=== PATIENT | female | born 1965 | race African-American/Black ===

== ENCOUNTER 2020-10-02 16:50 | Emergency (ER) | payer OTHER ==
[~2020-10-02] VITALS: Ht 165.1 cm; Wt 82.1 kg
[2020-10-02 18:52] LABS: ABSOLUTE NEUTROPHILS 2.1 thou/uL (1.4-8.2); BASOPHILS 0.7 % (0.0-2.0); EOSINOPHILS 0.6 % (0.0-3.0); HEMATOCRIT 41.1 % (37.0-47.0); HEMOGLOBIN 13.6 gm/dL (12.0-15.0); LYMPHOCYTES 44.9 % (24.0-44.0); MCH 31.8 pg (26.0-34.0); MCV 96.3 fL (80.0-100.0); MONOCYTES 9.7 % (1.0-8.0); PLATELET COUNT 237 thou/uL (150-400); POLYS 44.1 % (36.0-66.0); RBC 4.27 mil/uL (4.20-5.00); RDW 14.4 % (10.5-14.5); WBC 4.7 thou/uL (4.0-11.0)
[2020-10-02 18:58] LABS: ANION GAP 8 mmol/L (7-16); BUN 14 mg/dL (7-18); CALCIUM 9.3 mg/dL (8.5-10.1); CHLORIDE 105 mmol/L (98-107); CO2 30 mmol/L (21-32); CREATININE 0.6 mg/dL (0.6-1.0); GLUCOSE 105 mg/dL (74-106); POTASSIUM 3.7 mmol/L (3.5-5.1); SODIUM 143 mmol/L (136-145)
[2020-10-02 19:01] LABS: URINE BILIRUBIN NEGATIVE (Negative); URINE BLOOD NEGATIVE (Negative); URINE CLARITY CLEAR; URINE COLOR YELLOW; URINE GLUCOSE-RANDOM* NEGATIVE (Negative); URINE KETONES NEGATIVE (Negative); URINE LEUKOCYTES-REFLEX NEGATIVE (Negative); URINE NITRITE-REFLEX NEGATIVE (Negative); URINE PROTEIN (DIPSTICK) NEGATIVE (Negative); URINE SPECIFIC GRAVITY <= 1.005 (1.005-1.035); URINE UROBILINOGEN 0.2 E.U./dl (0.2-1.0)
[2020-10-02 19:04] LABS: ALBUMIN 3.9 g/dL (3.4-5.0); SALICYLATE < 2.8 mg/dL (2.8-20.0); SGOT 13 U/L (15-37); SGPT 17 U/L (14-59); TOTAL BILIRUBIN 0.3 mg/dL (0.2-1.0); TOTAL PROTEIN 7.5 g/dL (6.4-8.2)
[2020-10-02 19:15] LABS: AMP/METHAMP Negative (Negative); BARBITURATES Negative (Negative); BENZODIAZEPINES Negative (Negative); COCAINE Negative (Negative); METHADONE Negative (Negative); OPIATES Negative (Negative); PCP Negative (Negative)
[2020-10-03 05:08] VITALS: BP 142/68
== END 2020-10-03 05:15 ==
LOC: ER 16:50
PROVIDERS: Physician Assistant
DX: R44.3 Hallucinations, unspecified (principal); E11.9 Type 2 diabetes mellitus without complications; Z20.828 Contact with and (suspected) exposure to other viral communicable diseases

== ENCOUNTER 2020-10-03 05:43 | Inpatient (IN) | payer OTHER ==
[~2020-10-03] VITALS: Ht 170.2 cm; Wt 88.5 kg
--- NOTE | 2020-10-03 06:40 | NUR ---
PT ARRIVED TO UNIT APPROX 0518. PT PRIMARY LANGUAGE CREOLE, REPORTS BEING ABLE TO UNDERSTAND ANDORRAN WITH LITTLE ABILITY TO SPEAK ANDORRAN WELL. UPON ORIENTING PT TO ROOM AND DISCUSSING ADMISSION CONSENTS, PT REFUSING TO CONTINUE DUE TO LACK OF UNDERSTANDING OF SPOKEN AND WRITTEN ANDORRAN. PT NOTED TO HAVE DIFFICULTY READING PRIMARY LANGUAGE. WEATHER TEACHER OFFERED, PT AGREEABLE TO WEATHER TEACHER BUT PT REFUSING TO SIGN ADMISSION CONSENTS AND TO BE ADMITTED TO FLOOR. CHRISTINE DELGADILLO NOTIFIED UNIT OF HOSPITALIST CONSULT, ORDER ENTERED. CHRISTINE DELGADILLO NOTIFIED, RECEIVED APPROVAL THAT PT MAY REFUSE ADMISSION PT NOT A DANGER TO SELF OR OTHERS, AOX4 WITH ORIENTATION TO ABILITIES. DAY SHIFT AWARE OF PT POSSIBILITY TO LEAVE AMA.
--- NOTE | 2020-10-03 09:30 | NUR ---
ASSUMED CARE AT 0700 THIS MORNING. PT. HAS NOT SIGNED HERSELF IN. NOTED ON INTAKE SHEET THAT SHE HAS DM. ASKED THE PT. IF SHE WAS ON INSULIN. SHE NODDED HER HEAD IN THE AFFIRMATIVE. LOOKED THROUGHOUT THE CHART AND HER BELONGINGS. THERE IS NO MEDICATION LIST HERE. CALLED HER DAUGHTER GEORGINA IN [place] TO OBTAIN A MEDICATION LIST. NO ANSWER. LEFT DETAILED MESSAGE ON HER ANSWERING SERVICE TO PLEASE RETURN MY CALL. CALLED AIRLINE ATTENDANT JIMMIE PATINO. UPDATED HIM ON THE SITUATION AT HAND HERE. HE STATED HE WOULD BE IN "PRETTY SOON". WHEN I TALKED TO THE PT. SHE STATED SHE WOULD PROBABLY "LEAVE TOMORROW".
[2020-10-03 13:28] VITALS: BP 180/80
[2020-10-03 19:41] VITALS: BP 147/84
--- NOTE | 2020-10-04 04:40 | NUR ---
RECIEVED CARE OF THIS PATIENT AT 1900. PATIENT ALERT AND ORIENTED X4. PATIENT CALM AND COOPERATIVE, TOOK MEEDS WITHOUT PROBLEMS, HAS HARD TIME UNDERSTANDING BUT IF GO SLOW AND SPEAK CLEARLY UNDERSTANDS BETTER. C/O PAIN OF A LOT OF HER BODY. HAD NOTHING ORDERED SO SHE DID NOT PAIM MED. SLEPT MOST OF NIGHT.
[2020-10-04 10:09] VITALS: BP 128/78
--- NOTE | 2020-10-04 11:36 | NUR ---
Assessment and treatment plan completed
--- NOTE | 2020-10-04 12:10 | NUR ---
1200 RESUMMED CARE FROM OVERNIGHT SHIFT THIS AM, PATIENT IN ROOM QUIET. PATIENT ASKED IF SHE COULD REST AT BREAKFAST TIME BECAUSE SHE WAS ADMITTED AT 0500 AM. I LET HER REST UNTIL 10;00 SHE ATE BREAKFAST TOOK MEDICATION WITHOUT INCIDENCE. PATIENT IS ALERT ORIENTED TO SELF AND PLACE SHE HAS VH THAT SNAKES ARE TRYING TO BIT HER. PATIENT IS CREOLE AND CANNOT UNDERSTAND GERMAN VERY WELL. HER DR CALLED AND WAS TALKING WITH PATIENT AND SHE GAVE ME THE PHONE AND THE DAUGHTER TOLD ME ABOUT THE SNAKES. JIMMIE CAME TO SEE PATIENT AND ORDERED CT OF HEAD AND AN EKG. PATIENTS ABDOMEN SOFT BOWEL SOUNDS PRESENT LUNGS CLEAR PATIENT CARRIES HER BIBLE WITH HER. PATIENT IS ON A 96 HOUR HOLD AND NEEDS A DPOA TO MAKE DECISIONS FOR PATIENT. WILL CONTINUE TO MONITOR PATIENT FOR SAFETY AND BEHAVIORS.
[2020-10-04 18:07] VITALS: BP 120/73
--- NOTE | 2020-10-05 00:58 | NUR ---
Assumed care on 10/04/20 @ 1900, Cooperated with assessment, HRRR, Lungs sound CTA, reports Stomach pain, ABD BS present. Seated in the day room with a blanket over her head. Reports comes from Natalie, reports speaks Georgian. Received a phone call from daughter and spoke for a while. Denies SI and HI, Denies AH and VS. Reading from a book and awake at this writing. Has resisted suggestions that she lay down in bed and collar turner the lights. Will continue to monitor for patient safety and comfort.
--- NOTE | 2020-10-05 07:28 | EKG ---
[address] [place] [address] ELECTROCARDIOGRAM REPORT Name: SORAYA MATSON Room #: [facility] ADM IN M.R.#: [id number] Admission: 10/03/20 Attend Phys: Tere Anna MD Discharge: Date of : 63 Report #: [id number] [facility] Test Date: 2020-10-04 Test Time: 13:05:49 Pat Name: SORAYA MATSON Department: Room: [facility] Gender: F Marine Insulator: SABAS : 1965 Requested By: Stone Stone Order Number: [id number] MD: Lj Otto Measurements Intervals Thompson Rate: 59 P: 57 WI: 178 QRS: 14 QRSD: 90 T: 30 QT: 401 QTc: 398 Interpretive Statements Sinus rhythm No significant abnormality No previous ECG available for comparison Electronically Signed On 10-05-2020 7:28:40 BACON DE RINDER by Lj Otto [email or web address] <ELECTRONICALLY SIGNED> By: Lj Otto MD, [facility] 10/05/20 0728 1305 1305 Lj Otto MD, FAC /EPI
[2020-10-05 10:48] VITALS: BP 135/89
--- NOTE | 2020-10-05 13:44 | NUR ---
Assess due to new admit to [facility] for psychosis and hallucinations. Eating 100% of meals and wt is obese. Hx DM, BG 116-151, on carb control diet order. Low nutrition risk
--- NOTE | 2020-10-05 16:25 | NUR ---
JASMYN contacted pt's daughter Nely and spoke with her. She said pt has been having hallucinations that someone was trying to kill her for approx 3-5 months. She said pt has a PCP with [facility], and takes her to the doctor every time she makes these statements. She said the doctor says they cannot find anything wrong. SW asked if they have referred her to psych yet, and she said no, but she has been wanting to get her a psych eval but they only do them via tele psych. She said she does harmful things like slap herself in the head and face. Pt does not currently have a MH dx or a dx of a neurocognitive disorder. SW team will continue to follow pt during her stay on this unit.
--- NOTE | 2020-10-05 17:57 | NUR ---
ASSUMED PT CARE AT 0700. pt was alert and oriented x4. pt was calm and co-operative with care. pt abulates with a steady gaits. Pt reported that she saw snakes on her back last night and night. Pt stated her brother does [employer] and he want pt to be part of it, but pt refused and chose God. pt have an old scar wound on her left thigh. pt denies SI/HI, pt denies pain. Pt stated the help she need was prayers. Shirt Folder prayed with pt, few minutes later pt reported that after the prayers they stopped hitting her head. pt ate 100% of her meals. pt carries and read her bible. pt takes her meds whole Will continue to monitor pt.
[2020-10-05 19:51] VITALS: BP 136/91
--- NOTE | 2020-10-06 03:05 | NUR ---
Assumed care of patient this pm shift. Patient denies hi/si. Patient is alert and oriented x3. Takes medications whole with thin liquids. Ambulates without assistance, not a falls risk. Hears and sees snakes on her skin. Is aware that no one else can see these. Assessment shows no signs of acute distress. Patient asks for prayer. We will continue to monitor per hospital policy.
[2020-10-06 08:55] VITALS: BP 110/70
--- NOTE | 2020-10-06 15:49 | NUR ---
CONSULT [id number] WAS COMPLETED BY THIS AIR HOLE DRILLER. WE HAD A TIME OF PRAYER.
--- NOTE | 2020-10-06 18:29 | NUR ---
CALM AND COOPERATIVE THIS [id number] NOTED PEER INTERACTION. STRUCTURES FREE TIME LOOKING AT MAGAZINES OR RESTING QUIETLY IN ROOM. NO NOTED OR REPORTED PSYCHOSIS. DENIES C/O PAIN. GAIT STEADY-APPETITE GOOD
[2020-10-06 20:15] VITALS: BP 132/90
--- NOTE | 2020-10-06 21:11 | NUR ---
Assumed care on 10/06/20 @ 1900, seated in the day room facing the TV. Calm and responds when spoken to by staff or peers. Cooperative with medication and assessment. Tylenol 650 given for 6/10 pain in the legs. Oriented x 2 or 3. Language barrier is an issue. Will continue to monitor for safety and comfort.
[2020-10-06 21:45] VITALS: BP 132/90
[2020-10-07 11:40] VITALS: BP 130/80
--- NOTE | 2020-10-07 13:29 | NUR ---
1300 RESUMMED CARE FROM OVERNIGHT SHIFT THIS AM, PATIENT IN DAY ROOM QUIET. PATIENT ATE BREAKFAST TOOK MEDICATION WITHOUT INCIDENCE, PATIENT ALERT ORIENTED TO SELF AND KNOW WHAT YEAR AND KNOWS SHE IS IN A HOSPITAL. PATIENT DENIES SI/HI/AH/STILL HAS SOME VH ABOUT SNAKES AND BUGS BEING ON HER. PATIENTS ABDOMEN SOFT BOWEL SOUNDS PRESENT LUNGS CLEAR. PATIENT IS COMPLAINS OF PAIN ON BACK OFRT KNEE. DR ORTIZ ORDERED ULTRASOUND PATIENT QUIET COOPERATIVE DOES TRY TO HELP OTHER PATIENTS. WILL CONTINUE TO MONITOR PATIENT FOR SAFETY AND BEHAVIORS.
[2020-10-07 19:46] VITALS: BP 130/77
--- NOTE | 2020-10-08 02:26 | NUR ---
Assumed care this pm shift. Patient in good spirits, calm and cooperative. Denies hallucinations today but states did have them a couple of days ago. Alert and oriented x4. Takes medications whole with thin fluids. Denies hi/si. Ambulates with out assistance. Not a falls risk. Assessment shows no signs of acute distress. Patient seen coloring and interacting with staff and peers. We will continue to monitor per hospital policy.
[2020-10-08 08:30] VITALS: BP 133/80
--- NOTE | 2020-10-08 08:37 | NUR ---
PT SITTING OUT IN DINING ROOM EATING BREAKFAST. PT TOOK MEDS WITHOUT ANY ISSUES. PT KEEPS TO SELF AND NOT VERY SOCIAL. PT HAS BIBLE WITH HER. PT PRIMARY LANGUAGE IS CREOLE. DOES UNDERSTAND SIMPLE AZERI.
[2020-10-08 09:46] VITALS: BP 133/80
--- NOTE | 2020-10-08 10:30 | NUR ---
PT ANSWERED QUESTIONS FOR MRI AND STATED SHE DID HAVE A BIOPSY BEFORE ABOUT 20 YEARS AGO. PT DENIES ANY METAL IN BODY. GRAVEL MACHINE OPERATOR IS ALSO ASKING QUESTIONS ABOUT HOW PT IS FEELING TODAY USING A DIFFERENTIAL TESTER. PT STATED SHE STILL FEELS LIKE SOMETHING IS BITING HER BRAIN. ASKED PT IF SHE WOULD LIKE TYLENOL, SHE STATED YES. PT POINTING AT FIRE ALARM IN ROOM THAT IT HAS A LIGHT ON IT. TOLD PT THAT IT IS A FIRE ALARM.
--- NOTE | 2020-10-08 11:18 | NUR ---
JASMYN team met with pt to discuss her discharge. Pt said she is not experiencing SI, HI, or aggressive voices. However, she still does feel bugs crawling around her face and see things in the corners of her room. She said she is not afraid of them. When asked if she wants to remain after her 96 hour hold she said only if her MRI comes back showing something wrong; she would prefer to go home today as her daughter is off. Tomorrow her daughter works from 600-1930 and so pt will not be able to get in her home. JASMYN spoke with Dr. Anna about pt's wishes and why. She okayed pt to go home today pending the MRI results. JASMYN also told her that she will enroll pt into a program with casemanagement and psych. JASMYN contacted [facility] as pt lives in their [facility]. [facility] said pt will have to call once she d/c. JASMYN explained it will be her daughter calling as pt speaks Creole. JASMYN contacted pt's daughter Nely and arranged a 1600 d/c pending pt's MRI results being ok. Nely said ok. JASMYN gave her instruction concerning getting pt enrolled into [facility]. Nely said ok. JASMYN team will continue to follow pt during her stay on this unit.
--- NOTE | 2020-10-08 11:30 | NUR ---
PT GOING DOWN TO MRI WITH STAFF VIA W/C.
--- NOTE | 2020-10-08 15:50 | NUR ---
CALLED DR. YOUSSEF TO SEE MRI RESULTS, THEY HAVE BEEN READ AND DICTATED.
[2020-10-08] MEDS ORDERED: HALOPERIDOL 5 MG5 MG PO (15:51)
--- NOTE | 2020-10-08 17:19 | NUR ---
PT NOT BEING DISCHARGE TODAY. PT WILL SEE A NEUROLOGIST FOR FOLLOW-UP ON MRI.
--- NOTE | 2020-10-08 18:04 | NUR ---
LAB IS HERE AND TAKING SOME RESULTS. DR. YOUSSEF HERE TO SEE PT AND EXPLAIN REASON FOR TEST.
[2020-10-08 18:35] LABS: ABSOLUTE NEUTROPHILS 2.7 thou/uL (1.4-8.2); EOSINOPHILS 0.6 % (0.0-3.0); HEMATOCRIT 42.6 % (37.0-47.0); HEMOGLOBIN 14.3 gm/dL (12.0-15.0); LYMPHOCYTES 36.2 % (24.0-44.0); MCH 32.1 pg (26.0-34.0); MCHC 33.6 g/dL (28.0-37.0); MCV 95.5 fL (80.0-100.0); MONOCYTES 8.6 % (1.0-8.0); PLATELET COUNT 243 thou/uL (150-400); POLYS 53.6 % (36.0-66.0); RBC 4.46 mil/uL (4.20-5.00); RDW 14.3 % (10.5-14.5); WBC 5.1 thou/uL (4.0-11.0)
[2020-10-08 18:46] LABS: ALBUMIN 3.8 g/dL (3.4-5.0); CALCIUM 9.8 mg/dL (8.5-10.1); CREATININE 0.8 mg/dL (0.6-1.0); TOTAL BILIRUBIN 0.2 mg/dL (0.2-1.0); TOTAL PROTEIN 7.6 g/dL (6.4-8.2)
[2020-10-08 19:13] LABS: FOLIC ACID 10.9 ng/mL (8.6-58.9)
[2020-10-08 19:33] VITALS: BP 144/79
--- NOTE | 2020-10-09 04:33 | NUR ---
10-08-20 CARE TRANSFERRED 1899. PT AAOX4, VSS, RR EVEN AND NONLABORED ON RA, PT DENIES PAIN AND SI/HI/VAH. PT HAS REMAINED CALM AND COOPERATIVE. ZERO S/S OF ACUTE DISTRESS, PT WILL CONTINUE TO BE MONITOR PER [facility] PROTOCOL.
[2020-10-09 08:00] VITALS: BP 148/81
--- NOTE | 2020-10-09 09:04 | NUR ---
PT FINISHED EATING BREAKFAST AND WENT BACK TO ROOM. PT DOES NOT COMPLAIN OF ANY ISSUES AT THIS TIME. PT DOES WANT TO GO HOME WHEN ABLE. PT KEEPS BIBLE WITH HERE AND PRAY BEFORE EATING. PT UP AD ROJELIO. WAITING ON CONSULTS OF NEUROLOGY AND INFECTION PRIOR TO DISCHARGE.
[2020-10-09 09:55] VITALS: BP 148/81
--- NOTE | 2020-10-09 14:29 | NUR ---
SW spoke with pt via hospital translater program and discussed her MRI results with her and that the doctor would like her to stay for further testing. In order to do so, pt must sign in. Pt agreed to do so. SW also explained that pt must participate in groups as well. Pt also agreed to that. Last, SW explained that if pt says she wants to leave, the hospital must release her. However, that could mean that the tests she needs will not be performed. Pt said she understood. JASMYN provided an update to nursing supervisor unloading and pt's nurse. SW team will continue to follow pt during her stay on this unit.
--- NOTE | 2020-10-09 16:00 | NUR ---
PT WAS SEEN BY NEUROLOGIST AND DEJON LINDSAY. PT SIGNED VOLUNTARY PAPERS TODAY. PT STILL STAYS TO SELF AND DOESN'T COMMUNICATE WITH OTHER PEERS. PT HAS NOT COMPLAINED OF ANY HEADACHE PAINS. NO OTHER ISSUES AT THIS TIME. PT TAKING MEDICATION WITHOUT ANY ISSUES.
[2020-10-09 19:47] VITALS: BP 131/83
--- NOTE | 2020-10-09 23:35 | NUR ---
Assumed care on 10/09/20 @ 1900, seated in a recliner chair in the day room. Speaks to peers and staff when they interact with her. Covers her head up with a blanket, and when asked why, says I'm sleeping. Cooperates with assessment, takes medication whole with water. Does not retire to room at , instead sleeps in recliner in the day room.
[2020-10-10 06:52] LABS: CALCIUM 9.7 mg/dL (8.5-10.1); CREATININE 0.6 mg/dL (0.6-1.0); PHOSPHORUS 3.9 mg/dL (2.5-4.9)
[2020-10-10 06:54] LABS: CALCIUM 9.5 mg/dL (8.5-10.1); MAGNESIUM 1.8 mg/dL (1.8-2.4); PHOSPHORUS 3.9 mg/dL (2.5-4.9)
[2020-10-10 07:47] VITALS: BP 121/80
--- NOTE | 2020-10-10 09:49 | HC ---
[facility] [address] [place] [address] CONSULTATION Name: SORAYA MATSON Room #: 523B- ADM IN M.R.#: [id number] Admission: 10/03/20 Attend Phys: Tere Anna MD Discharge: Date of : 63 Report #: [id number] THIS REPORT FOR: cc: FAM - No family physician/PCP FAM - No family physician/PCP Adolph Marie MD ~ DATE OF SERVICE: 10/09/2020 INFECTIOUS DISEASE CONSULTATION ATTENDING PHYSICIAN: Dr. Anna. REASON FOR EVALUATION: Multiple calcified lesions noted on brain MRI. HISTORY OF SUBJECTIVE: Chart reviewed, patient examined. This is a 54 years old who is admitted through the Emergency Room with reports of psychosis and seeing ghosts. She was apparently hallucinating as well. As part of the initial evaluation, underwent CT of her head, which there is question of some calcified lesions, this was confirmed by MRI, described as scattered cerebral calcifications, described as multiple small foci, question of previous infectious process. There was not a significant amount of perilesional inflammatory change noted. She is able to give some history. She is not overtly psychotic at this point. It is notable she was born in [place] immigrated in [place]. She is unable to give me too many details about her life. When questioned about any chronic infections, seemingly she was not aware of any that she experienced, specifically mentioned TB. She did note she has had a previous lumbar puncture; however. She is not aware of any recent fevers or chills. She states her weight has been stable. No pulmonary or gastrointestinal related complaints. Did have HIV testing which was negative. ALLERGIES: None known. MEDICATIONS: Include Haldol, ondansetron, acetaminophen, metformin, glipizide, cyanocobalamin. PAST MEDICAL HISTORY: Notable for diabetes mellitus. SOCIAL HISTORY: Denies any smoking or illicit drug use. No ethanol. FAMILY HISTORY: Noncontributory. REVIEW OF SYSTEMS: Otherwise, limited, not remarkable. PHYSICAL EXAMINATION: GENERAL: She is sitting. She has diminished affect. She does make eye [facility] [address] [address] CONSULTATION Name: SORAYA MATSON Room #: 3B- ADM IN M.R.#: [id number] Admission: 10/03/20 Attend Phys: Tere Anna MD Discharge: Date of : 63 Report #: [id number] contact, although often looks away to the right. She is not overtly distressed. She appears reasonably well nourished. VITAL SIGNS: Temperature 96.1, pulse 57, respirations 18, blood pressure 148/81. SKIN: Warm, dry, no rashes. HEENT: Extraocular muscles intact. NECK: Appears to be supple. LUNGS: Breathing is nonlabored. ABDOMEN: Soft, nontender. RECTAL: Deferred. LABORATORY DATA: Sed rate of 11. HIV screen was negative. TSH of 0.829. Electrolytes: Sodium 142, potassium 4.0, chloride 103, bicarbonate is 30, anion gap of 9, BUN and creatinine 17 and 0.8, glucose 134, total protein is 7.6. Albumin 3.8, estimated GFR of 90. CBC: White count of 5.1, H and H 14.3 and 43.6, platelets of 247. MRI of the head, multiple scattered small hyperintense foci throughout both cerebral hemispheres corresponding with multiple calcifications on CT. Chest x-ray showed no acute process, no abnormal pulmonary opacities. Coronavirus testing was negative. Syphilis antibody is pending. ASSESSMENT AND PLAN: Cerebral lesions, appeared to be not acute, chronic changes suggest past exposure, did discuss with Neurology. I think LP is reasonable. We will do additional diagnostic tests looking for infectious causes ____ chronic phase. I am not sure if this is playing any role in her current situation, may be no therapy at this point, would not favor starting empiric antibiotics. <ELECTRONICALLY SIGNED> By: Adolph Marie MD 10/10/20 0949 1701 23 dAolph Marie MD /nt
--- NOTE | 2020-10-10 12:12 | HC ---
[facility] [address] [place] [address] CONSULTATION Name: SORAYA MATSON Room #: 523B-B ADM IN M.R.#: [id number] Admission: 10/03/20 Attend Phys: Tere Anna MD Discharge: Date of : 63 Report #: [id number] THIS REPORT FOR: cc: FAM - No family physician/PCP FAM - No family physician/PCP Mary Figueroa DO ~ NEUROLOGY CONSULT HISTORY OF PRESENT ILLNESS: The patient is a 54-year-old female who was initially admitted to the hospital on 10/02/2020. She was accepted for [facility] for psychiatric placement. I spoke to the patient and she explained to me that she has been living with her daughter for the past 4 months and prior to that, she lived in [place]. She was born in [facility]. She has been seeing things like snakes and the police had been notified. Apparently, she believes in [place]. She saw people through the window and was brought in by the police for evaluation. The patient tells me that she is concerned about paying for her bills. She has no money. She is concerned about paying for this hospital stay. The patient speaks some Greenlandic and creole, but also we were able to carry on a conversation by speaking Canadian as well. Review of the patient's chart is also helpful. The patient has had a CT scan and MRI of the head, which showed multiple scattered small hyperintense foci consistent with cerebral calcifications. As I was speaking to the patient, Infectious Disease was also coming in to see her and she will most likely require a spinal tap. PAST MEDICAL HISTORY: Diabetes. The patient is typically treated at [facility] and is on glipizide and metformin. In the hospital, she is on Glucophage 750 mg b.i.d., Glucotrol 5 mg b.i.d., haloperidol 5 mg at bedtime. ALLERGIES: None. PHYSICAL EXAMINATION: VITAL SIGNS: Temperature 35.6, pulse rate 57, respiratory rate 18, blood pressure 148/81, bedside pulse oximetry 100% on room air. LABORATORY WORK: Hematology: White blood cell count 5.1, hemoglobin 14.3, hematocrit 42.6, MCV 95.5, platelet count 243,000. Chemistry: Sodium 142, potassium 4, chloride 103, carbon dioxide 30, BUN 17, creatinine 0.8, GFR 90, glucose 134, calcium 9.8. Liver functions unremarkable. B12 of 207. Folate 0.829. PHYSICAL EXAMINATION: Cranial nerves 2-12 are grossly intact. Motor exam [address] [address] CONSULTATION Name: SORAYA MATSON Room #: 523B- ADM IN M.R.#: [id number] Admission: 10/03/20 Attend Phys: Tere Anna MD Discharge: Date of : 63 Report #: [id number] demonstrates symmetrical strength in all 4 extremities with tone and bulk normal. Reflexes are trace throughout. Plantar responses are flexor. Coordination reveals intact [id number]. IMPRESSION: The patient has multiple small calcifications of the brain. The differential diagnosis aside from infection such as neurocysticercosis toxoplasmosis would include hypoparathyroidism. The patient has a normal calcium level, so I doubt she has parathyroid disease. She is being seen by Infectious Disease and will most likely need a spinal tap to rule out neurocysticercosis toxoplasmosis in addition to perhaps even TORCH, although TORCH is a infection. The issue is that we have no idea how long the patient has had these calcifications. I reviewed the patient's lab work and her B12 level was 207. Neurological symptoms can occur below levels of 400, so I am going to begin B12 supplementation with 1000 mcg daily for a total of 3 doses and then I would recommend the injections to be given every other week until she can follow up with her primary care provider at [facility]. I thank you for your kind referral of the patient. We will continue to follow her with you. <ELECTRONICALLY SIGNED> By: Mary Figueroa DO 10/10/20 1212 1619 21 Mary Figueroa DO /nt
--- NOTE | 2020-10-10 12:26 | NUR ---
PT HAS BEEN ACTIVE WITH PEERS AND STAFF MEMBERS. PT HAS PROVIDED GREAT ATTENDANCE WHEN ATTENDING RECREATION THERAPY GROUPS. IT IS ENCOURAGED BY THE RECREATION THERAPIST THAT SHE WILL CONTINUE TO IMPROVE COPING SKILLS AND SELF ESTEEM TO REDUCE ANY FUTURE STRESSORS.
[2020-10-10 18:23] VITALS: BP 149/87
--- NOTE | 2020-10-10 18:36 | NUR ---
STRUCTURES FREE TIME SITTING IN DAYROOM LOOKING AT MAGAZINES OR READING A BOOK. NEUTRAL AFFECT. NO NOTED INTERACTION WITH PEERS AND DOES TEND TO SIT Alone. will attend group with PROMPTING. APPETITE IS GOOD-GAIT STEADY-DENIES PAIN/DISCOMFORT. POLITE YET GUARDED WITH STAFF-AT 1700 MED PASS WHEN handed her TWO PILLS-TRIED TO PUT THEM IN POCKET AND MUMBLING "LATER I WILL Have them" NO NOTED OR REPORTED A/V HALLUCINATIONS/PSYCHOSIS.
--- NOTE | 2020-10-11 03:30 | NUR ---
10-10-20 CARE TRANSFERRED 1899 OBSERVED PT SITTING ALONE IN CORNER OF DAY ROOM. PT AAOX4, VSS, RR EVEN AND NONLABORED ON RA. PT DENIES PAIN AND SI/HI/VAH. PT ACKNOWLEDGE THAT NEEDED TO GET A URINE SAMPLE, AND EXPLAINED THE POTTY HAT. NOTED PT GOING IN TO ANOTHER PATIENT BATHROOM, PT REPORTED SHE HAS BEEN LOCKED OUT OF HER ROOM. PT ROOM OPEN AND NOTED POTTY HAT ON FLOOR. PT HAS SHOWN RESISTANT TO VOIDING IN POTTY HAT. WHEN ASKED WHY SHE WAS SLEEPING IN DAY ROOM, SHE TOLD ME SHE FELT SAFER. ZERO S/S OF ACUTE DISTRESS NOTED, WILL CONTINUE TO MONITOR PER [facility] PROTOCOL.
[2020-10-11 05:36] LABS: GLYCOHEMOGLOBIN (HGB A1C) 5.7 % (4.8-5.6)
[2020-10-11 08:00] VITALS: BP 146/91; BP 149/84
[2020-10-11 11:40] LABS: URINE BILIRUBIN NEGATIVE (Negative); URINE BLOOD NEGATIVE (Negative); URINE COLOR YELLOW; URINE GLUCOSE-RANDOM* NEGATIVE (Negative); URINE KETONES NEGATIVE (Negative); URINE LEUKOCYTES TRACE (Negative); URINE NITRITE NEGATIVE (Negative); URINE PROTEIN (DIPSTICK) NEGATIVE (Negative); URINE UROBILINOGEN 0.2 E.U./dl (0.2-1.0)
[2020-10-11 11:49] LABS: URINE CLARITY HAZY
--- NOTE | 2020-10-11 14:10 | NUR ---
SW met with patient 1:1 in lieu of group due to COVID 19 restrictions. Patient was engaged and discussed concerns regarding being persecuted. She discussed living in [place] and moving to [place] originally. She states she has been in [place] four months and is trying to adjust to being here. SW provided support. SW team will continue to monitor.
--- NOTE | 2020-10-11 18:07 | NUR ---
SITTING QUIETLY IN DAYROOM READING NEWSPAPER DURING ANY UNSRUCTURED TIME-NOTED TO BE REASSURING A FEMALE PEER WHO WAS DISTRAUGHT IN DAYROOM GESTURING FOR HER TO COME OVER AND SIT AT TABLE. DENIES COMPLAINTS DURING AM ASSESSMENT-VAGUE RESPONSES AND CONSTRICTED AFFECT. BLOOD SUGARS 80 AT 0700 AND 81 AT 1700-PT REQUESTING DC OF FINGERSTICKS ALL HAVE BEEN STABLE. NO NOTED OR REPORTED PSYCHOSIS-APPETITE GOOD-GAIT STEADY
[2020-10-11 20:07] VITALS: BP 150/85
--- NOTE | 2020-10-12 04:13 | NUR ---
10-11-20 CARE TRANSFERRED 1900 OBSERVED PT SITTING IN DAY ROOM SOCIALIZING. PT AAOX4, VSS, RR EVEN AND NONLABORED ON RA, PT DENIES SI/HI/VAH AND PAIN. PT REPORTED FEELING CONSTPATED AND BS HYPO, PRN MOM GIVEN. PT REQUESTED TO SLEEP IN RECLINER IN DAY ROOM, NO RECLINER AVAILABLE. ADJUSTED PT BED FOR COMFORT. LATER NOTED PT SLEEPING ON FLOOR. ZERO S/S OF ACUTE DISTRESS NOTED, PT WILL CONTINUE TO BE MONITOR PER [facility] PROTOCOL.
[2020-10-12] MEDS ORDERED: FOLIC ACID1 MG PO (08:04)
[2020-10-12] MEDS ORDERED: SUPER THERAVIT1 EACH PO (08:05)
[2020-10-12 09:28] VITALS: BP 160/99
[2020-10-12 11:11] VITALS: BP 160/99
--- NOTE | 2020-10-12 11:17 | NUR ---
JASMYN was advised in tx team today by Dr. Anna that pt can discharge home today. JASMYN contacted Nely and arranged discharge for 1600. JASMYN followed - up with Med [facility]ist to see if pt has been screened. JASMYN contacted the Infectious Disease Control dept of [facility] and identified what is needed for a referral. A referral, MRI, and labs need to be faxed to [phone]. They will then call the pt and schedule an appt. They also have an staff interpreter service. SW team will continue to follow pt during her stay on this unit.
--- NOTE | 2020-10-12 11:48 | NUR ---
JASMYN D/C NOTE JASMYN created a JASMYN handout with the info for [facility] infectious disease center and Rony . JASMYN gave a copy to both pt and her nurse.
[2020-10-12] MEDS ORDERED: GLUCOPHAGE500 MG PO (12:15)
[2020-10-12] MEDS ORDERED: GLUCOTROL5 MG PO (12:15)
[2020-10-12] MEDS ORDERED: Dermacerin 4 OZ. TOP (12:15)
[2020-10-12 14:18] VITALS: BP 160/99
--- NOTE | 2020-10-12 17:05 | NUR ---
Assumed pt care at 0700. pt was calm and co-operative with care. Assessments completed and vss. pt took meds whole. pt denies si/hi, denies pain. there were no sign of distress noted. pt was eager to go home. pt ambulates with a steady gait. At 1619 pt was DC home with her all her belongings. pt was transported via w/c to the ER were pt picked up her belonging with security. pt daughter picked pt up by the ER entrance.
[2020-10-12 20:06] LABS: SYPHILIS AB Non Reactive (Non Reactive)
[2020-10-14 19:07] LABS: HISTOPLASMA MYCELIAL-CF Negative (Neg:<1:2)
== END 2020-10-12 16:19 | disposition home or self-care (01) | DRG 885 ==
LOC: SBH 05:43
PROVIDERS: Psychiatry & Neurology Neurology; Specialist; ADMIT Psychiatry & Neurology Psychiatry; ATTEND Psychiatry & Neurology Psychiatry
DX: F29 Unspecified psychosis not due to a substance or known physiological condition (principal); E11.9 Type 2 diabetes mellitus without complications; E66.9 Obesity, unspecified; E53.8 Deficiency of other specified B group vitamins; E20.9 Hypoparathyroidism, unspecified; G93.89 Other specified disorders of brain; Z20.822 Contact with and (suspected) exposure to COVID-19; Z68.30 Body mass index [BMI] 30.0-30.9, adult; Z28.21 Immunization not carried out because of patient refusal
CPT/HCPCS: 10880